=== PATIENT | male | born 1970 | race Caucasian/White ===

== ENCOUNTER 2021-04-11 15:46 | Emergency (ER) | payer OTHER ==
[~2021-04-11] VITALS: Ht 182.9 cm; Wt 68.0 kg
[~2021-04-11 15:46] MED LIST: ATIVAN0.5 MG PO; ATIVAN1 MG PO; KLONOPIN1 MG PO; SEROQUEL XR300 MG PO; VISTARIL25 MG PO
[2021-04-11 16:45] LABS: HEMOGLOBIN 15.7 gm/dl (14.0-17.5); RED BLOOD COUNT 4.91 M/UL (4.20-5.50)
[2021-04-11 17:10] LABS: BUN/CREATININE RATIO 11 (0-10)
[2021-04-11] MEDS ORDERED: PROAIR HFA8.5 GM INH (17:31)
[2021-04-11] MEDS ORDERED: BENZONATATE200 MG PO (17:31)
[2021-04-11] MEDS ORDERED: VISTARIL 50 MG50 MG PO (17:50)
== END 2021-04-11 19:30 | disposition home or self-care (01) ==
LOC: ER1 15:46
PROVIDERS: Physician Assistant
DX: Z23 Encounter for immunization (principal); U07.1 COVID-19; J12.82 Pneumonia due to coronavirus disease 2019; E03.9 Hypothyroidism, unspecified
CPT/HCPCS: 71045; 80053; 82550; 82553; 83874; 84484; 85025; 93005; 99285; M0243; Q0177

== ENCOUNTER 2021-09-17 14:28 | Emergency (ER) | payer OTHER ==
[~2021-09-17 14:28] MED LIST changes: +BENZONATATE200 MG PO; +PROAIR HFA8.5 GM INH; +VISTARIL 50 MG50 MG PO
== END 2021-09-17 18:19 | disposition home or self-care (01) ==
LOC: ER1 14:28
DX: F41.9 Anxiety disorder, unspecified (principal)
CPT/HCPCS: 99283

== ENCOUNTER → 2022-02-05 | Outpatient (CLI) | payer OTHER | LOC: KOH-I 10:42 | DX: R68.84 Jaw pain (principal) | CPT/HCPCS: 70328 ==

== ENCOUNTER 2022-03-10 14:36 | Emergency (ER) | payer OTHER ==
[2022-03-10] MEDS ORDERED: CLEOCIN HCL300 MG PO (18:33)
== END 2022-03-10 16:40 | disposition home or self-care (01) ==
LOC: ER1 14:36
DX: K04.7 Periapical abscess without sinus (principal); K02.9 Dental caries, unspecified; R11.10 Vomiting, unspecified
CPT/HCPCS: 70486; 96374; 99283; J1885